=== PATIENT | male | born 1955 | race Caucasian/White ===

== ENCOUNTER 2021-12-12 12:06 | Inpatient (IN) | payer BC ==
[2021-12-12 12:34] VITALS: BMI 28.3
[2021-12-12] MEDS ORDERED: ASPIRIN 81 MG CHEWABLE TABLETS ONE (13:01)
[2021-12-12 13:28] LABS: INR 1.02 (0.83-1.09); PROTHROMBIN TIME (PATIENT) 11.7 SEC (9.7-13.0)
[2021-12-12 13:30] LABS: HEMATOCRIT 39.6 % (35.4-49); HEMOGLOBIN 14.1 G/dL (11.7-16.9); MCH 33.9 pg (25.7-33.7); MCHC 35.7 g/dl (32.0-35.9); MEAN CELL VOLUME 95.1 fl (80-96); MEAN PLT VOLUME 8.6 fl (7.5-11.1); RBC 4.16 10^6/uL (4.00-5.60); RDW 13.9 % (11.9-15.9); WHITE BLOOD COUNT 6.8 10^3/uL (4.0-10.8)
[2021-12-12 13:31] LABS: ACTIVATED PTT 30.2 SECONDS (25.2-36.5)
[2021-12-12 13:36] LABS: ALBUMIN 3.2 g/dl (3.4-5.0); BILIRUBIN,TOTAL 0.6 mg/dl (0.2-1); TOT PROT 5.6 g/dl (6.4-8.2)
[2021-12-12 14:34] LABS: PLATELET ESTIMATE ADEQUATE
[2021-12-12 20:17] LABS: N-TERMINAL BNP 370.6 pg/ml (5-125)
[2021-12-12] MEDS: ATORVASTATIN CA 80 MG TABLET (FP) PO SCH (21:23)
[2021-12-13 08:12] LABS: HEMATOCRIT 40.5 % (35.4-49); HEMOGLOBIN 14.1 G/dL (11.7-16.9); MCH 33.4 pg (25.7-33.7); MCHC 34.8 g/dl (32.0-35.9); MEAN CELL VOLUME 95.7 fl (80-96); MEAN PLT VOLUME 9.5 fl (7.5-11.1); PLATELET COUNT 203.4 10^3/uL (134-434); RBC 4.23 10^6/uL (4.00-5.60); RDW 13.4 % (11.9-15.9); WHITE BLOOD COUNT 7.4 10^3/uL (4.0-10.8)
[2021-12-13 08:15] LABS: ALBUMIN 3.1 g/dl (3.4-5.0); CALCIUM 9.6 mg/dl (8.5-10); CREATININE 0.9 mg/dl (0.55-1.3); MAGNESIUM 1.9 mg/dL (1.8-2.4); PHOSPHOROUS 4.3 mg/dl (2.5-4.9); TOT PROT 5.2 g/dl (6.4-8.2)
[2021-12-13] MEDS: ASPIRIN COATED 81 MG TABLET.EC PO SCH (09:21)
[2021-12-13] MEDS: ENOXAPARIN NA (PORCINE) 40 MG/0.4 ML DISP.SYRIN SQ SCH (09:21)
[2021-12-13] MEDS: RANOLAZINE E.R. 500 MG TABLET (FP) PO SCH ×2 (09:21→21:00)
[2021-12-13] MEDS ORDERED: metoPROLOL SUCCINATE 25 MG TAB.SR.24H (FP) PO SCH (10:00)
[2021-12-13] MEDS ORDERED: LOSARTAN POTASSIUM 50 MG TABLET PO SCH (10:00)
[2021-12-13] MEDS: CLOPIDOGREL BISULFATE 75 MG TABLET (FP) PO SCH (12:30)
[2021-12-13] MEDS ORDERED: METHIMAZOLE 10 MG TABLET PO SCH (13:30)
[2021-12-13] MEDS: METHIMAZOLE 5 MG TABLET PO SCH ×2 (14:45→21:27)
[2021-12-13] MEDS: ATORVASTATIN CA 80 MG TABLET (FP) PO SCH (20:59)
[2021-12-14] MEDS: METHIMAZOLE 5 MG TABLET PO SCH ×3 (06:42→21:23)
[2021-12-14 08:28] LABS: HEMATOCRIT 43.1 % (35.4-49); HEMOGLOBIN 14.5 G/dL (11.7-16.9); MCH 32.5 pg (25.7-33.7); MCHC 33.7 g/dl (32.0-35.9); MEAN CELL VOLUME 96.4 fl (80-96); MEAN PLT VOLUME 9.4 fl (7.5-11.1); PLATELET COUNT 187.4 10^3/uL (134-434); RBC 4.47 10^6/uL (4.00-5.60); RDW 13.9 % (11.9-15.9); WHITE BLOOD COUNT 7.3 10^3/uL (4.0-10.8)
[2021-12-14 08:41] LABS: BILIRUBIN,TOTAL 0.9 mg/dl (0.2-1); CALCIUM 9.3 mg/dl (8.5-10); CREATININE 0.9 mg/dl (0.55-1.3); TOT PROT 5.4 g/dl (6.4-8.2)
[2021-12-14] MEDS: CLOPIDOGREL BISULFATE 75 MG TABLET (FP) PO SCH (09:23)
[2021-12-14] MEDS: RANOLAZINE E.R. 500 MG TABLET (FP) PO SCH ×2 (09:23→21:22)
[2021-12-14] MEDS: ENOXAPARIN NA (PORCINE) 40 MG/0.4 ML DISP.SYRIN SQ SCH (09:23)
[2021-12-14] MEDS: ASPIRIN COATED 81 MG TABLET.EC PO SCH (09:23)
[2021-12-14] MEDS ORDERED: ACETAMINOPHEN 325 MG TABLET (FP) PO PRN (11:56)
[2021-12-14] MEDS: ATORVASTATIN CA 80 MG TABLET (FP) PO SCH (21:22)
[2021-12-15] MEDS: METHIMAZOLE 5 MG TABLET PO SCH ×3 (06:17→21:20)
[2021-12-15] MEDS: ENOXAPARIN NA (PORCINE) 40 MG/0.4 ML DISP.SYRIN SQ SCH (09:17)
[2021-12-15] MEDS: RANOLAZINE E.R. 500 MG TABLET (FP) PO SCH ×2 (09:20→21:20)
[2021-12-15] MEDS: CLOPIDOGREL BISULFATE 75 MG TABLET (FP) PO SCH (09:20)
[2021-12-15] MEDS: ASPIRIN COATED 81 MG TABLET.EC PO SCH (09:20)
[2021-12-15 15:07] LABS: THYROID STIM IMMUNOGLOBULIN <0.10 IU/L (0.00-0.55)
[2021-12-15] MEDS: ATORVASTATIN CA 80 MG TABLET (FP) PO SCH (21:20)
[2021-12-16] MEDS: METHIMAZOLE 5 MG TABLET PO SCH ×3 (06:39→21:31)
[2021-12-16] MEDS: RANOLAZINE E.R. 500 MG TABLET (FP) PO SCH ×2 (09:14→21:32)
[2021-12-16] MEDS: ENOXAPARIN NA (PORCINE) 40 MG/0.4 ML DISP.SYRIN SQ SCH (09:14)
[2021-12-16] MEDS: LOSARTAN POTASSIUM 50 MG TABLET PO SCH (09:14)
[2021-12-16] MEDS: ASPIRIN COATED 81 MG TABLET.EC PO SCH (09:15)
[2021-12-16] MEDS: CLOPIDOGREL BISULFATE 75 MG TABLET (FP) PO SCH (09:15)
[2021-12-16] MEDS: ATORVASTATIN CA 80 MG TABLET (FP) PO SCH (21:31)
[2021-12-17 02:07] VITALS: RESP 18
[2021-12-17] MEDS: METHIMAZOLE 5 MG TABLET PO SCH (06:50)
[2021-12-17 08:51] VITALS: BP 124/58; PULSE 69; TEMP 99.5
[2021-12-17] MEDS: RANOLAZINE E.R. 500 MG TABLET (FP) PO SCH (09:10)
[2021-12-17] MEDS: ASPIRIN COATED 81 MG TABLET.EC PO SCH (09:10)
[2021-12-17] MEDS: ENOXAPARIN NA (PORCINE) 40 MG/0.4 ML DISP.SYRIN SQ SCH (09:10)
[2021-12-17] MEDS: CLOPIDOGREL BISULFATE 75 MG TABLET (FP) PO SCH (09:10)
[2021-12-17] MEDS: LOSARTAN POTASSIUM 50 MG TABLET PO SCH (09:10)
== END 2021-12-17 09:20 | disposition short-term general hospital (02) | DRG 198 ==
LOC: FER 12:06 → FM/S 14:36 → OBSVTOIN 16:51 → INTOOBSV 16:51 → OBSVTOIN 12-16 12:36
DX: I25.10 Atherosclerotic heart disease of native coronary artery without angina pectoris (principal); I48.0 Paroxysmal atrial fibrillation; E05.90 Thyrotoxicosis, unspecified without thyrotoxic crisis or storm; T46.2X5A Adverse effect of other antidysrhythmic drugs, initial encounter; Y92.89 Other specified places as the place of occurrence of the external cause; E78.5 Hyperlipidemia, unspecified; I11.9 Hypertensive heart disease without heart failure; R07.9 Chest pain, unspecified
CPT/HCPCS: 36415; 71045-TC-FY; 78452-TC; 80053; 80061; 82962; 83036; 83735; 83880; 84100; 84439; 84443; 84445; 84480; 84481; 84484; 85027; 85610; 85730; 93005; 93017; 93306-TC; 99285-25; A9502; C9803-CS; G0378; U0003; U0005